=== PATIENT | male | born 1960 | race Asian ===

== ENCOUNTER 2022-09-11 10:12 | Day surgery (SDC) | payer OTHER ==
[~2022-09-11] VITALS: Ht 160 cm; Wt 53.1 kg
[~2022-09-11 10:12] MED LIST: ACET-2619 PO; TRAM-748 PO
[2022-09-11] MEDS ORDERED: diphenhydrAMINE 50 MG/ML VIAL ONE (11:10)
[2022-09-11] MEDS ORDERED: MIDAZOLAM 5 MG/5 ML VIAL ONE (11:11)
[2022-09-11] MEDS ORDERED: fentaNYL citrate 0.05 MG/ML VIAL ONE (11:11)
[2022-09-11] MEDS ORDERED: LIDOCAINE 2% 100 MG/5 ML UJET TP ONE (11:11)
[2022-09-11] MEDS ORDERED: fentaNYL citrate 0.05 MG/ML VIAL IVP ONE (12:15)
[2022-09-11] MEDS ORDERED: MIDAZOLAM 2 MG/2 ML VIAL IVP ONE (12:15)
== END 2022-09-11 13:18 | disposition home or self-care (01) ==
LOC: MDS 10:12 → MMU 10:20 → MDS 13:18
PROVIDERS: ATTEND Internal Medicine Gastroenterology
DX: Z12.11 Encounter for screening for malignant neoplasm of colon (principal); E11.9 Type 2 diabetes mellitus without complications; E78.5 Hyperlipidemia, unspecified; Z86.010 Personal history of colon polyps; Z79.84 Long term (current) use of oral hypoglycemic drugs; Z79.899 Other long term (current) drug therapy; Z20.822 Contact with and (suspected) exposure to COVID-19
CPT/HCPCS: 45378; 87426; J2250; J3010; J1200